=== PATIENT | male | born 1945 | race Caucasian/White ===

== ENCOUNTER 2017-01-28 11:23 | Emergency (ER) | payer OTHER ==
[2017-01-28 11:37] VITALS: TEMP 98
[2017-01-28] MEDS ORDERED: TETANUS,DIPHTHERIA,PERTUSSIS 1 EA SYG IM ONE (12:05)
[2017-01-28] MEDS ORDERED: LIDOCAINE 1% W/ EPINEPHRINE 20 ML VIAL INJ ONE (12:06)
--- NOTE | 2017-01-28 12:10 | ED.PDOC ---
History of Present Illness - General Chief Complaint: Skin/Abrasion/Tear Stated Complaint: skin tear left palm Time Seen by Provider: 01/28/17 12:00 Source: patient, RN notes reviewed, Vital Signs reviewed, family - Exam Limitations: no limitations - History of Present Illness Initial Comments: Patient comes in with c/o a cut on his left palm. 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 Denies any other injuries besides some scrapes on his L knee, elbow and hip. Did not hit his head. No LOC. Timing/Duration: just prior to arrival Severity: moderate Location: hands Improving Factors: rest Worsening Factors: movement Associated Symptoms: denies symptoms Allergies/Adverse Reactions: Allergies NO KNOWN ALLERGY Allergy (Verified 01/28/17 11:37) Home Medications: Ambulatory Orders NK [NK] 01/28/17 Review of Systems - Review of Systems Constitutional: States: no symptoms reported EENTM: States: no symptoms reported Respiratory: States: no symptoms reported Cardiology: States: no symptoms reported Gastrointestinal/Abdominal: States: no symptoms reported Musculoskeletal: States: no symptoms reported Skin: States: see HPI Neurological: States: no symptoms reported All other Systems: No Change from Baseline Past Medical History (General) - Patient Medical History Hx Hypertension: Yes - stopped meds 2-3 years ago per doctor order Hx Cancer: Yes - prostate Surgical History: other - Vaccination History Hx Tetanus, Diphtheria Vaccination: - unknown Hx Influenza Vaccination: No Hx Pneumococcal Vaccination: No - Social History Hx Alcohol Use: No Hx Substance Use: No Hx Substance Use Treatment: No Hx Depression: No Family Medical History - Family History Mother Family History: Unknown Physical Exam - Physical Exam General Appearance: Alert, Comfortable, No apparent distress, Well Developed, Well Groomed, Well Hydrated, Well Nourished Respiratory: no respiratory distress Extremity: normal range of motion, non-tender, normal inspection, no pedal edema Neurologic: no motor/sensory deficits, alert, normal mood/affect, oriented x 3 Skin Exam: warm/dry, normal color Skin Problem Location: other - L palm, L elbow, L knee Skin Character: other - L palm: superficial T shaped laceration with minimal bleeding. L elbow & knee: abrasion Comments: Vital Signs 01/28/17 11:29 Temperature 98.0 F Pulse Rate [ 68 pulse ox] Respiratory 18 Rate Blood Pressure 132/79 [Right Arm] O2 Sat by Pulse 97 Oximetry Procedures - Laceration/Wound Repair Left Proximal Volar Hand Wound Length (cm): 11 Wound's Depth, Shape: superficial, irregular - T shaped Wound Explored: no foreign body removed Irrigated w/ Saline (cc's): 200 Betadine Prep?: No - scrubbed with Hibiclens & saline Anesthesia: Lidocaine w/ Epi Volume Anesthetic (cc's): 7 Wound Debrided: minimal Wound Repaired With: sutures Suture Size/Type: 5:0, prolene Number of Sutures: 11 Layer Closure?: No Sterile Dressing Applied?: Yes Splint Applied?: No Sling Applied?: No Departure - Departure Clinical Impression: Abrasion of left elbow, initial encounter, Abrasion, left knee, initial encounter Laceration of left palm without complication Qualifiers: Encounter type: initial encounter Qualified Code(s): S61.412A - Laceration without foreign body of left hand, initial encounter Time of Disposition: 13:05 Disposition: Discharge to Home or Self Care Condition: Good Departure Forms: ED Discharge - Pt. Copy, Patient Portal Self Enrollment Instructions: DI for Abrasion, DI for Laceration Repair -- Simple Diet: resume usual diet Activity: increase activity as tolerated Home Medications: Ambulatory Orders NK [NK] 01/28/17 Additional Instructions: Suture removal in 7-10 days Keep clean, dry and cover with antibiotic ointment twice daily
[2017-01-28] MEDS ORDERED: CHLORHEXIDINE GLUCONATE 4 % 15 ML UD TOP ONE (12:18)
[2017-01-28] MEDS ORDERED: NEOMYCIN-BACITRACIN-POLYMYXIN 0.9 GM UD TOP ONE ×2 (12:59→13:02)
[2017-01-28 13:18] VITALS: BP 155/82; O2SAT 96
== END 2017-01-28 13:17 | disposition home or self-care (01) ==
LOC: ER 11:23
DX: S61.412A Laceration without foreign body of left hand, initial encounter (principal); I10 Essential (primary) hypertension; Z23 Encounter for immunization; Z85.46 Personal history of malignant neoplasm of prostate; X58.XXXA Exposure to other specified factors, initial encounter; Y99.9 Unspecified external cause status

== ENCOUNTER → 2017-10-24 | Outpatient (CLI) | payer OTHER | LOC: RESP 10:07 | PROVIDERS: ATTEND Nuclear Medicine Nuclear Cardiology | DX: R00.1 Bradycardia, unspecified (principal); R00.2 Palpitations ==

== ENCOUNTER 2019-01-22 20:34 | Emergency (ER) | payer OTHER ==
[2019-01-22] MEDS ORDERED: ANTIVENIN SNAKE POLYIMMUNE FAB 1 EA VIAL ONE (20:36)
[2019-01-22] MEDS ORDERED: MORPHINE SULFATE INJ 10 MG/ML VIAL IV ONE ×2 (20:38→21:19)
[2019-01-22] MEDS ORDERED: ONDANSETRON INJ 4 MG/2 ML VIAL IV ONE (20:38)
[2019-01-22] MEDS ORDERED: methylPREDNISolone SODIUM SUC 125 MG/2 ML VIAL IV ONE (20:39)
[2019-01-22] MEDS ORDERED: diphenhydrAMINE HCL 50 MG/ML VIAL IV ONE (20:39)
[2019-01-22] MEDS ORDERED: diphenhydrAMINE HCL 50 MG/ML VIAL ONE (20:41)
[2019-01-22] MEDS ORDERED: methylPREDNISolone SODIUM SUC 125 MG/2 ML VIAL ONE (20:41)
[2019-01-22] MEDS ORDERED: MORPHINE SULFATE INJ 10 MG/ML VIAL ONE (20:41)
[2019-01-22] MEDS ORDERED: ONDANSETRON INJ 4 MG/2 ML VIAL ONE (20:41)
[2019-01-22] MEDS ORDERED: ANTIVENIN SNAKE POLYIMMUNE FAB 6 EA in SODIUM CHLORIDE 0.9% 250ML 250 ML IV INFUS ONE (20:45)
[2019-01-22] MEDS ORDERED: SODIUM CHLORIDE 0.9% 250ML 250 ML ONE (20:54)
--- NOTE | 2019-01-22 20:57 | ED.PDOC ---
History of Present Illness - General Time Seen by Provider: 01/22/19 20:38 Source: patient Exam Limitations: no limitations - History of Present Illness Initial Comments: The patient is a 73-year-old male presenting to the emergency room secondary to a rattlesnake bite just above the lateral aspect of the right ankle. It occurred 30-40 minutes prior to arrival. He is certain it is a rattlesnake. He is in severe pain upon arrival. There is obvious swelling about 5 inches above and 5 inches below. Pulses are palpable. Moves extremities well. No evidence of any nova shock at this point. Blood pressure is elevated likely related to pain. Telemetry monitoring shows normal sinus rhythm with frequent PVCs. He is oxygenating well at this point. No previous night bites. He denies coronary artery disease but does have some hypertension and rhythm issues for which she takes metoprolol and losartan. Timing/Duration: 1/2 hour Severity: severe Improving Factors: nothing Worsening Factors: nothing Associated Symptoms: denies symptoms Allergies/Adverse Reactions: Allergies NO KNOWN ALLERGY Allergy (Verified 01/28/17 11:37) Home Medications: Ambulatory Orders NK 01/28/17 Review of Systems - Review of Systems Constitutional: States: no symptoms reported EENTM: States: no symptoms reported Respiratory: States: no symptoms reported Cardiology: States: no symptoms reported Gastrointestinal/Abdominal: States: no symptoms reported Genitourinary: States: no symptoms reported Musculoskeletal: States: see HPI Skin: States: see HPI Neurological: States: anxiety Endocrine: States: no symptoms reported All other Systems: No Change from Baseline Past Medical History (General) - Patient Medical History Hx Hypertension: Yes - stopped meds 2-3 years ago per doctor order Hx Cancer: Yes - prostate - Vaccination History Hx Tetanus, Diphtheria Vaccination: - unknown Hx Influenza Vaccination: No Hx Pneumococcal Vaccination: No - Social History Hx Alcohol Use: No Hx Substance Use: No Hx Substance Use Treatment: No Hx Depression: No Family Medical History - Family History Mother Family History: Unknown Physical Exam - Physical Exam General Appearance: Alert, Obvious distress Eye Exam: bilateral normal Ears, Nose, Throat: hearing grossly normal, normal ENT inspection Neck: full range of motion, supple Respiratory: lungs clear, normal breath sounds, no respiratory distress, no accessory muscle use Cardiovascular/Chest: normal peripheral pulses, no edema, other - sinus tachycardia with frequent PVCs. 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 Comments: blood pressure is 161/107. Pulse is 89. Afebrile. 98% on room air. Respiratory rate is 22. Progress - Progress Progress: 01/22/19 21:00 the patient is a 73-year-old male presenting to the emergency room approximate 40 minutes after having been bitten by a rattlesnake to the right lateral lower leg. The wound is cleaned with hydrogen peroxide. The patient is given morphine for pain, Zofran for nausea and he did receive a dose of Solu- Medrol and Benadryl upon arrival.we are starting CroFab 6 vials. The patient is being transferred to [facility] for further CroFab is available and ICU care is available if needed. Transferring for higher level of care. Acceptance is appreciated. Laboratory work will be forwarded as it comes in. critical care time spent excluding otherwise billable procedures is 40 minutes. rebecca olvera md [id number] - Results/Orders Results/Orders: laboratory work is still pending and will be forwarded as it comes in. I see no acute pathology on the chest x-ray. EKG, multiple are done secondary to pre-frequent PVCs. The patient has a normal axis. Frequent PVCs. No definitive ST segment or T-wave changes indicative of acute ischemia. Rate is 95 bpm. Normal sinus rhythm otherwise. Laboratory Tests 01/22/19 01/22/19 01/22/19 20:45 20:45 20:45 WBC 10.1 RBC 4.92 Hgb 15.9 Hct 46.3 MCV 94.2 H MCH 32.2 H MCHC 34.2 RDW 12.2 Plt Count 220 MPV 8.6 Absolute Neuts (auto) 5.20 Absolute Lymphs (auto) 3.80 H Absolute Monos (auto) 0.80 Absolute Eos (auto) 0.20 Absolute Basos (auto) 0.10 Neutrophils % 51.5 Lymphocytes % 37.3 Monocytes % 8.4 Eosinophils % 1.9 Basophils % 0.9 PT 9.9 INR 0.99 PTT (SP) 23.4 Fibrinogen 282 Fibrin Degrad Products Cancelled Sodium 138 Potassium 3.4 L Chloride 99 L Carbon Dioxide 27 Anion Gap 15.4 BUN 17 Creatinine 0.97 BUN/Creatinine Ratio 17.5 Random Glucose 120 H Serum Osmolality 278.4 Lactic Acid Calcium 9.0 Total Bilirubin 0.7 AST 21 ALT 19 Alkaline Phosphatase 44 Creatine Kinase 161 CK-MB (CK-2) 3.9 CK-MB (CK-2) % Not Reportable Troponin I 0.02 Serum Total Protein 7.2 Albumin 4.4 Globulin 2.8 Albumin/Globulin Ratio 1.6 01/22/19 20:45 WBC RBC Hgb Hct MCV MCH MCHC RDW Plt Count MPV Absolute Neuts (auto) Absolute Lymphs (auto) Absolute Monos (auto) Absolute Eos (auto) Absolute Basos (auto) Neutrophils % Lymphocytes % Monocytes % Eosinophils % Basophils % PT INR PTT (SP) Fibrinogen Fibrin Degrad Products Sodium Potassium Chloride Carbon Dioxide Anion Gap BUN Creatinine BUN/Creatinine Ratio Random Glucose Serum Osmolality Lactic Acid 2.6 H* Calcium Total Bilirubin AST ALT Alkaline Phosphatase Creatine Kinase CK-MB (CK-2) CK-MB (CK-2) % Troponin I Serum Total Protein Albumin Globulin Albumin/Globulin Ratio Departure - Departure Clinical Impression: Rattlesnake bite Qualifiers: Encounter type: initial encounter Injury intent: accidental or unintentional Qualified Code(s): T63.011A - Toxic effect of rattlesnake venom, accidental (unintentional), initial encounter Disposition: Transfer to Hospital Home Medications: Ambulatory Orders NK 01/28/17 Transfer to Outside Facility - Transfer Information Accepting Provider:: dr dailey Accepting Facility: [facility] Reason for Transfer: specialized care not available
--- NOTE | 2019-01-22 21:06 | RAD ---
EXAM: Chest,1 View CLINICAL INDICATION: Rattlesnake bite COMPARISON: There is no previous study for comparison. FINDINGS: A single view of the chest was obtained. The heart size is normal. The pulmonary vascularity is unremarkable. The lungs are clear. There is no consolidation, infiltrate, pleural effusion, or pneumothorax. IMPRESSION: No evidence of active pulmonary disease. Electronically signed by: Nico Ochoa MD 01/22/2019 9:05 PM CDT
[2019-01-22 21:29] VITALS: TEMP 99.3
[2019-01-22 21:39] VITALS: BP 192/105; O2SAT 95
== END 2019-01-22 21:39 | disposition short-term general hospital (02) ==
LOC: ER 20:34
DX: T63.011A Toxic effect of rattlesnake venom, accidental (unintentional), initial encounter (principal); I49.3 Ventricular premature depolarization; R00.0 Tachycardia, unspecified; R11.0 Nausea; Z85.46 Personal history of malignant neoplasm of prostate; Y92.828 Other wilderness area as the place of occurrence of the external cause
CPT/HCPCS: 36415; 71045; 80053; 82550; 82553; 83605; 84484; 85025; 85384; 85610; 85730; 93005; J1200; J2270; J2405; J2930; J7050